=== PATIENT | male | born 1945 | race Caucasian/White ===

== ENCOUNTER 2022-09-05 08:29 | Outpatient (CLI) | payer MEDICARE, BC ==
[2022-09-05] MEDS ORDERED: Magnevist 469MG/ML 20 ML VIAL ONE (09:36)
== END 2022-09-05 08:30 | disposition home or self-care (01) ==
LOC: CSHMRI 08:29
PROVIDERS: ATTEND Urology
DX: C61 Malignant neoplasm of prostate (principal)
CPT/HCPCS: 72197; 82565; A9579

== ENCOUNTER 2023-11-17 09:04 | Outpatient (CLI) | payer MEDICARE ==
[2023-11-17] MEDS ORDERED: Magnevist 469MG/ML 20 ML VIAL ONE (12:36)
== END 2023-11-17 09:05 | disposition home or self-care (01) ==
LOC: CSHMRI 09:04
PROVIDERS: ATTEND Urology
DX: C61 Malignant neoplasm of prostate (principal)
CPT/HCPCS: 72197; 82565